=== PATIENT | female | born 1995 | race Caucasian/White ===

== ENCOUNTER 2017-05-08 09:11 | Inpatient (IN) ==
[2017-05-08] MEDS ORDERED: SODIUM CHLORIDE 0.9% 1,000 ML IV STA (09:56)
[2017-05-08] MEDS ORDERED: ONDANSETRON 4 MG/2 ML VIAL IV STA (09:56)
[2017-05-08] MEDS ORDERED: ONDANSETRON 4 MG/2 ML VIAL ONE ×2 (10:58→16:02)
[2017-05-08 11:27] LABS: Calcium 9.6 MG/DL (8.5-10.1); Osmolality,Calculated 278.4 MOS/KG (273-304); Potassium 4.1 MMOL/L (3.5-5.1)
[2017-05-08 11:33] LABS: Basophils % 0.4 % (0.0-0.8); Hematocrit 40.3 VOL% (35.7-47.0); Hemoglobin 13.3 GM/DL (12.0-16.0); Immature Granulocytes % 0.2 %; Immature Granulocytes Absolute 0.02 #; Lymphocytes # 1.1 10*3/uL (1.4-4.0); Lymphocytes % 12.8 % (21.3-54.2); Mean Corpuscular Hemoglobin 30 PG (27-34); Mean Corpuscular Volume 90.6 FL (87-102); Mean Platelet Volume 11.6 FL (9.6-12.0); Monocytes # 0.3 10*3/uL (0.11-0.8); Monocytes % 3.4 % (1.7-12.7); Neutrophils # 6.8 10*3/uL (1.4-7.4); Neutrophils % 83.2 % (38.7-73.9); Platelet Count 198 T/CUMM (130-400); Red Blood Count 4.45 MC/CUMM (3.8-5.5); Red Cell Distribution Width 12.4 % (9.3-17.3); White Blood Count 8.2 T/CUMM (4-12)
[2017-05-08] MEDS ORDERED: ACETAMINOPHEN 325 MG TABLET PO PRN (13:10)
[2017-05-08] MEDS ORDERED: DEXTROSE 50% 25 GM/50 ML SYRINGE IV ONE (15:43)
[2017-05-08] MEDS ORDERED: DEXTROSE 50% 25 GM/50 ML VIAL IV STA (15:45)
[2017-05-08 15:59] LABS: Apearance,Urine Slightly Hazy (Clear); Bacteria,Urine Occasional /HPF (Few); Bilirubin,Urine Negative (Negative); Blood, Urine Small mg/dL (Negative); Glucose,Urine (UA) Negative (Negative); Ketones,Urine 80 mg/dL (Negative); Mucus,Urine Few /LPF (Occasional); Nitrite,Urine Negative (Negative); Protein,Urine Negative; RBC,Urine <1 /HPF (0-4); Squamous Epithelial Cell,Urine Occasional /HPF (0-10); Urine Color Yellow (Yellow); Urine Specific Gravity 1.014 (1.001-1.035); Urine Urobilinogen < 2.0 EU/DL (0.2-1.0); WBC,Urine 1 /HPF (0-6)
[2017-05-08] MEDS: ONDANSETRON 4 MG/2 ML VIAL IV PRN (16:05)
[2017-05-08 18:03] LABS: Thyroid Stimulating Hormone 1.01 uIU/ml (0.358-3.74)
[2017-05-08] MEDS: SODIUM CHLORIDE 0.9% 1,000 ML IV SCH ×3 (18:29→23:49)
[2017-05-09] MEDS: SODIUM CHLORIDE 0.9% 1,000 ML IV SCH ×5 (03:44→20:53)
[2017-05-09 05:53] LABS: Basophils % 0.5 % (0.0-0.8); Eosinophils % 0.7 % (0.00-10.9); Hematocrit 34.8 VOL% (35.7-47.0); Hemoglobin 11.5 GM/DL (12.0-16.0); Immature Granulocytes % 0.3 %; Immature Granulocytes Absolute 0.02 #; Lymphocytes # 2.5 10*3/uL (1.4-4.0); Lymphocytes % 42.3 % (21.3-54.2); Mean Corpuscular Hemoglobin 30 PG (27-34); Mean Corpuscular Volume 90.4 FL (87-102); Mean Platelet Volume 12.1 FL (9.6-12.0); Monocytes # 0.4 10*3/uL (0.11-0.8); Monocytes % 6.4 % (1.7-12.7); Neutrophils % 49.8 % (38.7-73.9); Platelet Count 163 T/CUMM (130-400); Red Blood Count 3.85 MC/CUMM (3.8-5.5); Red Cell Distribution Width 12.5 % (9.3-17.3); White Blood Count 5.9 T/CUMM (4-12)
[2017-05-09 06:25] LABS: Albumin 2.8 G/DL (3.4-5.0); Calcium 7.9 MG/DL (8.5-10.1); Osmolality,Calculated 283.8 MOS/KG (273-304); Potassium 4.1 MMOL/L (3.5-5.1); Total Protein 5.4 G/DL (6.4-8.3)
[2017-05-09] MEDS: PANTOPRAZOLE 40 MG TABLET PO SCH (09:25)
[2017-05-09] MEDS: BISACODYL 5 MG TABLET PO SCH ×3 (09:25→23:14)
[2017-05-09] MEDS: ONDANSETRON 4 MG/2 ML VIAL IV PRN (11:10)
[2017-05-09] MEDS ORDERED: POLYETHYLENE GLYCOL POWDER 255 GM BOTTLE PO ONE (14:20)
[2017-05-09] MEDS: CIPROFLOXACIN INJ 400 MG in PREMIX 1 EACH IV SCH (15:00)
[2017-05-09] MEDS ORDERED: POLYETHYLENE GLYCOL POWDER 17 GM PACK PO SCH (17:00)
[2017-05-09] MEDS ORDERED: MAGNESIUM CITRATE 300 ML BOTTLE PO ONE (21:00)
[2017-05-10] MEDS: SODIUM CHLORIDE 0.9% 1,000 ML IV SCH ×4 (01:25→14:46)
[2017-05-10] MEDS: CIPROFLOXACIN INJ 400 MG in PREMIX 1 EACH IV SCH ×2 (02:33→15:31)
[2017-05-10 06:32] LABS: Basophils % 0.6 % (0.0-0.8); Eosinophils # 0.1 10*3/uL (0.0-0.87); Eosinophils % 1.4 % (0.00-10.9); Hematocrit 35.5 VOL% (35.7-47.0); Hemoglobin 12.1 GM/DL (12.0-16.0); Immature Granulocytes % 0.2 %; Immature Granulocytes Absolute 0.01 #; Lymphocytes % 41.2 % (21.3-54.2); Mean Corpuscular HGB Conc 34.1 GM/DL (32-36); Mean Corpuscular Hemoglobin 30 PG (27-34); Mean Corpuscular Volume 88.1 FL (87-102); Mean Platelet Volume 12.4 FL (9.6-12.0); Monocytes # 0.4 10*3/uL (0.11-0.8); Monocytes % 7.2 % (1.7-12.7); Neutrophils # 2.4 10*3/uL (1.4-7.4); Neutrophils % 49.4 % (38.7-73.9); Platelet Count 169 T/CUMM (130-400); Red Blood Count 4.03 MC/CUMM (3.8-5.5); Red Cell Distribution Width 12.5 % (9.3-17.3); White Blood Count 4.9 T/CUMM (4-12)
[2017-05-10] MEDS: PANTOPRAZOLE 40 MG TABLET PO SCH (09:38)
[2017-05-10] MEDS ORDERED: LIDOCAINE 100 MG/5 ML SYRINGE ONE (15:51)
[2017-05-10] MEDS ORDERED: PROPOFOL 200 MG/20 ML VIAL IV ONE (15:51)
[2017-05-10 16:32] VITALS: BP 110/62
== END 2017-05-10 17:20 | disposition home or self-care (01) | DRG 392 ==
LOC: N.ED 09:11 → SUATTDRO 13:01 → N.EDINP 13:01 → N.3E 16:50
PROVIDERS: ADMIT Internal Medicine; ATTEND Internal Medicine
PROC: COLONBX (2017-05-10 07:35)

== ENCOUNTER 2017-07-16 06:02 | Observation (INO) ==
[2017-07-16] MEDS ORDERED: SODIUM CHLORIDE 0.9% 2,000 ML IV STA (07:24)
[2017-07-16 07:56] LABS: Basophils % 0.3 % (0.0-0.8); Eosinophils % 0.3 % (0.00-10.9); Hematocrit 41.7 VOL% (35.7-47.0); Immature Granulocytes % 0.4 %; Immature Granulocytes Absolute 0.04 #; Lymphocytes # 1.5 10*3/uL (1.4-4.0); Lymphocytes % 15.1 % (21.3-54.2); Mean Corpuscular HGB Conc 33.6 GM/DL (32-36); Mean Corpuscular Hemoglobin 29 PG (27-34); Mean Corpuscular Volume 87.6 FL (87-102); Mean Platelet Volume 11.5 FL (9.6-12.0); Monocytes # 0.3 10*3/uL (0.11-0.8); Monocytes % 3.4 % (1.7-12.7); Neutrophils # 7.7 10*3/uL (1.4-7.4); Neutrophils % 80.5 % (38.7-73.9); Platelet Count 235 T/CUMM (130-400); Red Blood Count 4.76 MC/CUMM (3.8-5.5); Red Cell Distribution Width 12.5 % (9.3-17.3); White Blood Count 9.6 T/CUMM (4-12)
[2017-07-16 08:25] LABS: Albumin 3.7 G/DL (3.4-5.0); Bilirubin,Total 0.9 MG/DL (0.2-1.0); Calcium 9.2 MG/DL (8.5-10.1); Total Protein 7.5 G/DL (6.4-8.3)
[2017-07-16 08:26] LABS: Osmolality,Calculated 274.7 MOS/KG (273-304); Potassium 3.8 MMOL/L (3.5-5.1)
[2017-07-16 08:40] LABS: Apearance,Urine CLOUDY (Clear); Bacteria,Urine Few /HPF (Few); Bilirubin,Urine Negative (Negative); Blood, Urine Negative (Negative); Calcium Oxalate Crystals,Urine Occasional /HPF (Few); Glucose,Urine (UA) Negative (Negative); Ketones,Urine 20 mg/dL (Negative); Mucus,Urine Many /LPF (Occasional); Nitrite,Urine Negative (Negative); Protein,Urine 30 MG/DL; RBC,Urine 3 /HPF (0-4); Squamous Epithelial Cell,Urine Occasional /HPF (0-10); WBC,Urine 4 /HPF (0-6)
[2017-07-16 08:41] LABS: Urine Color Dark Yellow (Yellow)
[2017-07-16 08:45] LABS: Barbiturates Screen,Urine Negative (Negative); Benzodiazepines Screen,Urine Positive (Negative); Cannabinoid Screen,Urine Negative (Negative); Opiate Screen,Urine Negative (Negative); Phencyclidine Screen,Urine Negative (Negative)
[2017-07-16] MEDS ORDERED: ACETAMINOPHEN 325 MG TABLET PO PRN (10:28)
[2017-07-16] MEDS: SODIUM CHLORIDE 0.9% 1,000 ML IV SCH ×2 (10:45→18:44)
[2017-07-16] MEDS: ONDANSETRON 4 MG/2 ML VIAL IV PRN ×2 (13:55→20:05)
[2017-07-16] MEDS: CITALOPRAM 20 MG TABLET PO SCH (17:07)
[2017-07-16] MEDS: FAMOTIDINE 20 MG TABLET PO SCH (17:07)
[2017-07-16] MEDS: DEXTROSE 5% NACL 0.9% 1,000 ML IV SCH (20:05)
[2017-07-16] MEDS: DOCUSATE SODIUM 100 MG CAPSULE PO SCH (20:09)
[2017-07-17] MEDS ORDERED: PANTOPRAZOLE 40 MG TABLET PO SCH (09:00)
[2017-07-17] MEDS ORDERED: MEGESTROL 400 MG/10 ML UDCUP PO SCH (09:00)
[2017-07-17] MEDS: FAMOTIDINE 20 MG TABLET PO SCH (09:07)
[2017-07-17] MEDS: DOCUSATE SODIUM 100 MG CAPSULE PO SCH (09:08)
[2017-07-17] MEDS: CITALOPRAM 20 MG TABLET PO SCH (09:11)
[2017-07-17] MEDS: ONDANSETRON 4 MG/2 ML VIAL IV PRN (09:33)
[2017-07-17 12:35] VITALS: BP 113/67
[2017-07-17] MEDS: DEXTROSE 5% NACL 0.9% 1,000 ML IV SCH (13:08)
[2017-07-17] MEDS ORDERED: CITALOPRAM 20 MG TABLET PO SCH (21:00)
== END 2017-07-17 13:58 | disposition home or self-care (01) ==
LOC: N.ED 06:02 → INTOOBSV 08:59 → N.EDINP 08:59 → SUPCPDRO 08:59 → N.2E 13:19
PROVIDERS: ATTEND Family Medicine

== ENCOUNTER 2019-08-06 10:44 | Observation (INO) ==
[2019-08-06 14:26] LABS: Basophils % 0.3 % (0.0-0.8); Eosinophils % 0.2 % (0.00-10.9); Hematocrit 40.1 VOL% (35.7-47.0); Hemoglobin 13.3 GM/DL (12.0-16.0); Immature Granulocytes % 0.5 %; Immature Granulocytes Absolute 0.06 #; Lymphocytes # 2.6 10*3/uL (1.4-4.0); Lymphocytes % 23.3 % (21.3-54.2); Mean Corpuscular HGB Conc 33.2 GM/DL (32-36); Mean Corpuscular Volume 88.9 FL (87-102); Mean Platelet Volume 10.9 FL (9.6-12.0); Monocytes % 5.9 % (1.7-12.7); Neutrophils % 69.8 % (38.7-73.9); Platelet Count 269 T/CUMM (130-400); Red Blood Count 4.51 MC/CUMM (3.8-5.5); Red Cell Distribution Width 13.1 % (9.3-17.3); White Blood Count 10.9 T/CUMM (4-12)
[2019-08-06] MEDS ORDERED: ACETAMINOPHEN 500 MG TABLET PO PRN (14:43)
[2019-08-06] MEDS: LACTATED RINGERS 1,000 ML IV SCH (14:45)
[2019-08-06 14:46] LABS: Albumin 3.2 G/DL (3.4-5.0); Bilirubin,Total 0.4 MG/DL (0.2-1.0); Calcium 8.7 MG/DL (8.5-10.1); Total Protein 6.9 G/DL (6.4-8.3)
[2019-08-06] MEDS ORDERED: MULTIVITAMIN INJ 10 ML in DEXTROSE 5% NACL 0.45% 1,000 ML IV SCH (15:00)
[2019-08-06] MEDS: FAMOTIDINE 20 MG/2 ML VIAL IV SCH (16:00)
[2019-08-06] MEDS: ONDANSETRON 4 MG/2 ML VIAL IV SCH ×2 (16:05→21:31)
[2019-08-06] MEDS: METOCLOPRAMIDE 10 MG/2 ML VIAL IV SCH ×2 (16:15→23:47)
[2019-08-06 17:30] LABS: Apearance,Urine CLEAR (Clear); Bilirubin,Urine Negative (Negative); Blood, Urine Small mg/dL (Negative); Glucose,Urine (UA) Negative (Negative); Ketones,Urine 80 mg/dL (Negative); Mucus,Urine Many /LPF (Occasional); Nitrite,Urine Negative (Negative); Protein,Urine Negative; Squamous Epithelial Cell,Urine Occasional /HPF (0-10); Urine Color Yellow (Yellow); Urine Specific Gravity 1.015 (1.001-1.035); Urine Urobilinogen < 2.0 EU/DL (0.2-1.0); WBC,Urine 1 /HPF (0-6)
[2019-08-06] MEDS ORDERED: BUTORPHANOL 1 MG/ML VIAL IV PRN (17:32)
[2019-08-06] MEDS: POTASSIUM CHLORIDE 20 MEQ TABLET PO SCH (20:56)
[2019-08-06] MEDS ORDERED: SERTRALINE 25 MG TABLET PO SCH (21:00)
[2019-08-07] MEDS: POTASSIUM CHLORIDE INJ 20 MEQ in LACTATED RINGERS 1,000 ML IV SCH ×2 (01:31→06:11)
[2019-08-07] MEDS: LACTATED RINGERS 1,000 ML IV SCH ×2 (01:32→06:04)
[2019-08-07] MEDS: ONDANSETRON 4 MG/2 ML VIAL IV SCH ×2 (03:48→09:42)
[2019-08-07] MEDS: FAMOTIDINE 20 MG/2 ML VIAL IV SCH (03:55)
[2019-08-07] MEDS ORDERED: METOCLOPRAMIDE 5 MG TABLET PO ONE (09:44)
[2019-08-07 09:49] LABS: Bilirubin,Total 0.5 MG/DL (0.2-1.0); Calcium 9.1 MG/DL (8.5-10.1); Total Protein 6.6 G/DL (6.4-8.3)
[2019-08-07] MEDS: METOCLOPRAMIDE 10 MG/2 ML VIAL IV SCH (11:07)
[2019-08-07] MEDS: POTASSIUM CHLORIDE 20 MEQ TABLET PO SCH (11:07)
[2019-08-07 13:19] VITALS: BP 117/70
== END 2019-08-07 15:45 | disposition home or self-care (01) ==
LOC: N.OB
PROVIDERS: ADMIT Obstetrics & Gynecology; ATTEND Obstetrics & Gynecology